=== PATIENT | male | born 1945 | race Caucasian/White ===

== ENCOUNTER 2023-09-27 09:50 | Outpatient (REF) | payer MEDICARE, SELFPAY ==
[2023-09-27 11:02] VITALS: BP 147/67; PULSE 49; RESP 18; TEMP 36.4; O2SAT 97; BMI 29.1
[2023-09-27 12:58] VITALS: BP 136/84; PULSE 53; O2SAT 98
== END 2023-09-27 09:51 | disposition home or self-care (01) ==
LOC: HO.MS 09:50
PROVIDERS: Visit Provider Ophthalmology
PROC: (CPT 67840; principal; 2023-09-27 15:40)
DX: L82.1 Other seborrheic keratosis (principal)
CPT/HCPCS: 67840; 88305